=== PATIENT | female | born 1955 | race Caucasian/White ===

== ENCOUNTER 2022-12-28 10:54 | Emergency (ER) | payer MEDICARE, MEDICAID ==
[~2022-12-28] VITALS: Ht 149.9 cm; Wt 66.0 kg
[~2022-12-28 10:54] MED LIST: CELE200C PO; DULO60CA45 PO; GABA-532 PO; GLIP5TAB12 PO; LEVO100T9 PO; SITA50TA3 PO; TOPUD PO
[2022-12-28 10:58] VITALS: BP 188/63; PULSE 82; RESP 16; TEMP 98.7; O2SAT 100
[2022-12-28 11:35] LABS: BASOPHILS % 0.8 % (0.0-2.0); DIFFERENTIAL COMMENT 0; EOSINOPHILS % 1.1 % (0.0-5.0); HEMATOCRIT. 31.7 % (36.0-48.0); LYMPHOCYTES % 20.3 % (20.0-50.0); MEAN CORPUSCULAR HEMOGLOBIN 24.2 pg (28.0-32.0); MEAN CORPUSCULAR HGB CONC 31.5 g/dL (31.0-37.0); MEAN CORPUSCULAR VOLUME 76.7 fL (81.0-99.0); MEAN PLATELET VOLUME 8.8 fl (7.4-10.4); MONOCYTES % 5.7 % (2.0-8.0); NEUTROPHILS % 72.1 % (40.0-76.0); PLATELET 255 x1000/uL (130-400); RED BLOOD CELL COUNT 4.14 mill/uL (4.2-5.4); RED CELL DISTRIBUTION WIDTH 15.5 % (11.6-14.6); WHITE BLOOD COUNT 7.5 x1000/uL (4.5-11.0)
[2022-12-28 12:56] LABS: CHLORIDE 109 mEq/L (98-107); INDEX HEMOLYSI 2 (1-3); INDEX ICTERIC 1 (1-4); INDEX LIPEMIC 1 (1-3); POTASSIUM 4.1 mEq/L (3.5-5.1); SODIUM 138 mEq/L (136-145)
[2022-12-28 13:05] LABS: ALANINE AMINOTRANSFERASE 24 IU/L (13-61); ALBUMIN 3.9 g/dL (3.4-5.0); ASPARTATE AMINOTRANSFERASE 18 IU/L (15-37); BILIRUBIN TOTAL 0.5 mg/dL (0.1-1.0); CARBON DIOXIDE 24 mEq/L (21-32); CREATININE 0.6 mg/dL (0.6-1.3); GLUCOSE 106 mg/dL (70-105); PROTEIN TOTAL 8.6 g/dL (6.0-8.3); UREA NITROGEN BLOOD 12 mg/dL (7-21)
[2022-12-28] MEDS ORDERED: IOHEXOL-300 100 ML BOTTLE ONE (15:05)
[2022-12-28] MEDS ORDERED: AMOX-494 MT (17:01)
[2022-12-28] MEDS ORDERED: CIPHCO EACH EAR (17:17)
== END 2022-12-28 18:30 | disposition home or self-care (01) ==
LOC: ER 11:07
DX: R22.1 Localized swelling, mass and lump, neck (principal); H66.90 Otitis media, unspecified, unspecified ear
CPT/HCPCS: 80053; 83605; 85025; 87040; 36415; 70491; 99291; Q9967; Z7610 ×2